=== PATIENT | male | born 1990 | race Caucasian/White ===

== ENCOUNTER 2020-09-22 23:48 | Emergency (ER) | payer BC, OTHER ==
[~2020-09-22] VITALS: Ht 182.9 cm; Wt 90.7 kg
[~2020-09-22 23:48] MED LIST: SUCR1TAB; [UNRECOGNIZED DRUG - CODE]
[2020-09-22 23:58] VITALS: BP_SYST 157
[2020-09-23 01:37] VITALS: BP_SYST 124
== END 2020-09-23 01:37 | disposition home or self-care (01) ==
LOC: SED 23:48
DX: J06.9 Acute upper respiratory infection, unspecified (principal); R09.81 Nasal congestion; Z20.822 Contact with and (suspected) exposure to COVID-19
CPT/HCPCS: 36415; 70360-TC; 71045; 86403; 87081; 99284